=== PATIENT | female | born 1985 | race African-American/Black ===

== ENCOUNTER 2023-04-27 09:41 | Emergency (ER) | payer MEDICAID ==
[~2023-04-27] VITALS: Ht 162.6 cm; Wt 60.3 kg
[2023-04-27] MEDS ORDERED: CYCL5TAB PO (11:19)
[2023-04-27] MEDS ORDERED: CYCLOBENZAPRINE 10 MG TABLET PO ONE (11:30)
[2023-04-27] MEDS ORDERED: ACETAMINOPHEN ES 500 MG TABLET PO ONE (11:30)
[2023-04-27] MEDS ORDERED: CYCLOBENZAPRINE 10 MG TABLET ONE (11:50)
[2023-04-27] MEDS ORDERED: ACETAMINOPHEN ES 500 MG TABLET ONE (11:50)
[2023-04-27 12:21] VITALS: BP 121/79; TEMP 98; O2SAT 100
== END 2023-04-27 12:21 | disposition home or self-care (01) ==
LOC: ER 09:45
DX: M25.511 Pain in right shoulder (principal); M54.2 Cervicalgia; Z88.8 Allergy status to other drugs, medicaments and biological substances; V89.2XXA Person injured in unspecified motor-vehicle accident, traffic, initial encounter; Y93.89 Activity, other specified; Y92.89 Other specified places as the place of occurrence of the external cause; Y99.8 Other external cause status